=== PATIENT | female | born 1965 | race Caucasian/White ===

== ENCOUNTER 2025-05-12 00:10 | Emergency (ER) | payer BC ==
[2025-05-12] MEDS ORDERED: Sodium Chloride 0.9% 2.5 ML Syringe FLUSH PRN (00:22)
[2025-05-12] MEDS ORDERED: Sodium Chloride 0.9% 10 ML Syringe FLUSH PRN (00:22)
[2025-05-12 00:28] LABS: BASOPHILS ABSOLUTE AUTO 0.09 K/uL (0.00-0.20); BASOPHILS PERCENT AUTO 0.7 % (0.0-1.0); EOSINOPHILS ABSOLUTE AUTO 0.19 K/uL (0.00-0.45); EOSINOPHILS PERCENT AUTO 1.6 % (0.0-6.0); IMMATURE GRAN ABSOLUTE AUTO 0.04 K/uL (0.00-0.05); IMMATURE GRAN PERCENT AUTO 0.3 % (0.0-0.4); LYMPHOCYTES ABSOLUTE AUTO 4.03 K/uL (1.00-4.80); LYMPHOCYTES PERCENT AUTO 33.3 % (24.0-44.0); MEAN PLATELET VOLUME 11.0 fL (9.4-12.3); MONOCYTES ABSOLUTE AUTO 0.81 K/uL (0.00-0.80); MONOCYTES PERCENT AUTO 6.7 % (0.0-8.0); NEUTROPHILS ABSOLUTE AUTO 6.95 K/uL (1.80-7.70); NEUTROPHILS PERCENT AUTO 57.4 % (41.0-71.0); NRBC ABSOLUTE 0.00 K/uL (0.00-0.02); NRBC PERCENT 0.0 /100WBC (0.0-0.2); PLATELET COUNT,PLT 223 K/uL (150-400); RED BLOOD CELL COUNT 4.88 M/uL (4.10-5.30); WHITE BLOOD CELL COUNT,WBC 12.11 K/uL (3.9-11.3)
[2025-05-12] MEDS: Diphtheria,Pertussis(Acell),Tetanus Vaccine 0.5 ML Syringe IM ONE (00:38)
[2025-05-12 00:42] LABS: INR 0.93 (0.86-1.11)
[2025-05-12] MEDS: Ondansetron 4 MG/2 ML SDV IVPUSH ONE (00:58)
[2025-05-12] MEDS: Labetalol 100 MG/20 ML MDV IVPUSH ONE (00:59)
[2025-05-12 01:01] LABS: A/G RATIO 0.9 (0.9-1.6); ALANINE AMINOTRANSFERASE,ALT 14 IU/L (14-63); ASPARTATE AMNIOTRANSFERASE,AST 19 IU/L (15-37); BILIRUBIN TOTAL 0.3 mg/dL (0.2-1.0); BLOOD UREA NITROGEN,BUN 17 mg/dL (7.0-18.0); CARBON DIOXIDE,CO2 29.2 mmol/L (21.0-32.0); CHLORIDE,CL 102 mmol/L (98-107); CREATININE 1.1 mg/dL (0.6-1.0); ETHANOL BLOOD MEDICAL <3 mg/dL; GLUCOSE RANDOM 127 mg/dL (74-106); POTASSIUM,K 3.4 mmol/L (3.5-5.1); PROTEIN TOTAL,TP 7.4 g/dL (6.4-8.2); SODIUM,NA 139 mmol/L (136-145)
[2025-05-12 01:05] LABS: ESTIMATED GFR 58 mL/min (>60)
[2025-05-12] MEDS: Potassium Chloride 20 MEQ Tab.ER PO ONE (02:23)
[2025-05-12 02:39] LABS: APPEARANCE,URINE CLEAR; GLUCOSE,URINE 100 mg/dL (NEGATIVE); OCCULT BLOOD,URINE TRACE-LYSED (NEGATIVE)
[2025-05-12 02:47] LABS: EPITHELIAL CELLS,URINE NOT SEEN (NONE-FEW)
[2025-05-12 02:48] LABS: AMPHETAMINES SCREEN, URINE NEGATIVE (CUTOFF=500); BUPRENORPHINE SCREEN,URINE NEGATIVE (CUTOFF=10); METHADONE SCREEN, URINE NEGATIVE (CUTOFF=200); METHAMPHETAMINES SCREEN, URINE NEGATIVE (CUTOFF=500); OXYCODONE SCREEN,URINE NEGATIVE (CUT0FF=100); PCP SCREEN,URINE NEGATIVE (CUTOFF=25); THC SCREEN,URINE 20 NG/ML NEGATIVE (CUTOFF=50)
== END 2025-05-12 02:58 ==
LOC: MW.ED 00:10
DX: R56.9 Unspecified convulsions (principal); S01.552A Open bite of oral cavity, initial encounter; X58.XXXA Exposure to other specified factors, initial encounter
CPT/HCPCS: 36415; 70450; 80053; 80305; 80307; 81001; 85025; 85610; 90471; 90715; 93005; 96374; 96375; 99285; A9270; J1920; J2405